=== PATIENT | female | born 1995 | race Caucasian/White ===

== ENCOUNTER 2016-12-17 05:54 | Inpatient (IN) ==
[2016-12-17] MEDS ORDERED: ONDANSETRON 4 MG/2 ML VIAL IV PRN (06:10)
[2016-12-17] MEDS ORDERED: MEPERIDINE 50 MG/1 ML VIAL IV PRN (06:10)
[2016-12-17] MEDS ORDERED: ACETAMINOPHEN 325 MG TABLET PO PRN (06:10)
[2016-12-17] MEDS ORDERED: LACTATED RINGERS 1,000 ML IV SCH (06:30)
[2016-12-17 06:32] LABS: Basophils # 0.1 10*3/uL (0.0-0.2); Basophils % 0.5 % (0.0-0.8); Eosinophils # 0.1 10*3/uL (0.0-0.87); Eosinophils % 1.2 % (0.00-10.9); Hematocrit 36.9 VOL% (35.7-47.0); Hemoglobin 12.9 GM/DL (12.0-16.0); Immature Granulocytes % 0.4 %; Immature Granulocytes Absolute 0.04 #; Lymphocytes # 2.6 10*3/uL (1.4-4.0); Lymphocytes % 27.7 % (21.3-54.2); Mean Corpuscular Hemoglobin 30 PG (27-34); Monocytes # 0.8 10*3/uL (0.11-0.8); Monocytes % 8.3 % (1.7-12.7); Neutrophils # 5.8 10*3/uL (1.4-7.4); Neutrophils % 61.9 % (38.7-73.9); Platelet Count 178 T/CUMM (130-400); Red Blood Count 4.24 MC/CUMM (3.8-5.5); Red Cell Distribution Width 13.8 % (9.3-17.3); White Blood Count 9.4 T/CUMM (4-12)
[2016-12-17] MEDS ORDERED: OXYTOCIN/LR 20 UNIT/1,000 ML BAG IV SCH (07:00)
[2016-12-17 07:05] LABS: Albumin 2.7 G/DL (3.4-5.0); Bilirubin,Total 0.5 MG/DL (0.2-1.0); Calcium 8.8 MG/DL (8.5-10.1); Osmolality,Calculated 273.5 MOS/KG (273-304); Total Protein 6.3 G/DL (6.4-8.3)
[2016-12-17 07:37] LABS: Hepatitis B Surface Ag Quant 0.14 Index; Hepatitis B Surface Ag Result Negative (Negative)
--- NOTE | 2016-12-17 09:03 | History and Physical Update ---
History and Physical Update - History and Physical H&P was reviewed, the patient examined and there: are no changes in the patients condition since last H&P was completed. - Dictation Physical: refer to scanned H&P - Physical Exam Mental Status: alert and oriented Heart: regular rate and rhythm Lung: clear to auscultation Abdomen: within normal limits Vitals: within normal limits History and Physical Changes: 39 weeks for induction. Pt with bilateral hearing loss. Pt with + CF screen. declined screening for CF.
[2016-12-17] MEDS ORDERED: miSOPROStol 200 MCG TABLET ONE ×2 (11:05→11:06)
[2016-12-17] MEDS ORDERED: ePHEDrine 50 MG/ML AMP ONE (11:06)
[2016-12-17] MEDS ORDERED: RHO(D) IMMUNE GLOBULIN 300 MCG SYRINGE IM ONE (13:40)
[2016-12-17] MEDS ORDERED: oxyCODONE/ACETAMINOPHEN 5-325 MG TABLET PO PRN ×2 (13:40)
[2016-12-17] MEDS ORDERED: HYDROCORTISONE 2.5% RECTAL CREAM 30 GM TUBE TOP PRN (13:40)
[2016-12-17] MEDS ORDERED: LANOLIN 50% CREAM 0.3 OZ TUBE TOP PRN (13:40)
[2016-12-17] MEDS ORDERED: BISACODYL 10 MG SUPP RECTAL PRN (13:40)
[2016-12-17] MEDS ORDERED: IBUPROFEN 800 MG TABLET PO PRN (13:40)
[2016-12-17] MEDS ORDERED: BENZOCAINE 20%/MENTHOL 0.5% SPRAY 56 GM CAN TOP PRN (13:40)
[2016-12-17] MEDS ORDERED: DIPH/TET/ACEL PERT BOOSTER VACCINE 0.5 ML VIAL IM ONE (13:40)
[2016-12-17] MEDS ORDERED: MEASLES/MUMPS/RUBELLA VACCINE 0.5 ML VIAL SUBCUT ONE (13:40)
[2016-12-17] MEDS ORDERED: WITCH HAZEL PADS 100/JAR TOP PRN (13:40)
[2016-12-17] MEDS ORDERED: OXYTOCIN/LR 20 UNIT/1,000 ML BAG IV ONE (13:40)
[2016-12-17] MEDS: DOCUSATE SODIUM 100 MG CAPSULE PO SCH (21:30)
[2016-12-18 06:39] LABS: Basophils % 0.3 % (0.0-0.8); Eosinophils # 0.1 10*3/uL (0.0-0.87); Eosinophils % 0.6 % (0.00-10.9); Hematocrit 34.1 VOL% (35.7-47.0); Hemoglobin 11.9 GM/DL (12.0-16.0); Immature Granulocytes % 0.5 %; Immature Granulocytes Absolute 0.06 #; Lymphocytes # 2.4 10*3/uL (1.4-4.0); Mean Corpuscular HGB Conc 34.9 GM/DL (32-36); Mean Corpuscular Hemoglobin 31 PG (27-34); Mean Corpuscular Volume 88.1 FL (87-102); Monocytes # 0.8 10*3/uL (0.11-0.8); Monocytes % 6.6 % (1.7-12.7); Neutrophils # 9.1 10*3/uL (1.4-7.4); Platelet Count 149 T/CUMM (130-400); Red Blood Count 3.87 MC/CUMM (3.8-5.5); Red Cell Distribution Width 13.8 % (9.3-17.3); White Blood Count 12.5 T/CUMM (4-12)
--- NOTE | 2016-12-18 09:16 | OB/GYN Progress Note ---
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 - Constitutional Vitals: Vital Signs Temp Pulse Resp BP Pulse Ox 12/18/16 07:28 97.1 F L 75 18 117/77 98 12/18/16 04:00 96.5 F L 91 H 18 121/76 96 12/17/16 23:47 98.2 F 101 H 18 127/68 99 12/17/16 20:00 98.2 F 84 18 140/74 99 12/17/16 17:30 99.0 F 100 H 20 135/80 98 12/17/16 16:30 99.0 F 97 H 20 136/78 98 12/17/16 15:30 99.0 F 87 20 132/84 98 12/17/16 15:00 98.5 F 74 18 121/74 99 12/17/16 14:30 98.5 F 75 18 132/78 99 General appearance: normal weight, no acute distress - Head Head exam: Present: normal inspection, normocephalic - Eye Eye exam: Present: EOMI - Respiratory Respiratory exam: Present: clear to auscultation bilaterally - Cardiovascular Cardiovascular exam: Present: regular rate and rhythm - GI/Abdominal GI/Abdominal exam: Present: soft (fundus firm, nontender) - Extremities Exam Extremities exam: Present: normal inspection - Neurological Exam Neurological exam: Present: alert, oriented X3 - Psychiatric Psychiatric exam: Present: normal affect, normal mood - Skin Skin exam: Present: normal color, warm Results - Labs CBC & BMP: 12/18/16 06:20 12/17/16 06:24 Lab Results: I have reviewed the past 24 hour labs
[2016-12-18] MEDS: DOCUSATE SODIUM 100 MG CAPSULE PO SCH (09:19)
[2016-12-18] MEDS: MULTIVITAMIN (PRENATAL) TABLET PO SCH (09:20)
[2016-12-19 08:52] VITALS: BP 120/68
--- NOTE | 2016-12-19 08:57 | Discharge Summary ---
Hospital Course - Hospital Course Hospital Course: Pt admitted for induction. She delivered without complication. Her course was unremarkable except that she did very well. Diagnosis - Discharge Diagnosis (1) Perineal laceration with delivery, second degree, delivered Status: Acute Discharge Plan - Discharge Data Disposition: Disch To Home/Self Care Condition at Discharge: Stable Discharge Diet: regular diet Activity: other (pelvic rest x 6 wks) Hygiene: may shower Weight Bearing at Discharge: full weight bearing Driving: not for (1 week) Contact your physician if you experience:: fever over 101, Difficulty voiding, Redness or swelling, Nausea/Vomiting, Shortness of breath, Bleeding, pain uncontrolled by pain medications - Discharge Medications New Ibuprofen Tab [Motrin Tab] 800 mg PO Q6H PRN #30 tablet PRN Reason: Pain Moderate (4-7) oxyCODONE/ACETAMINOPHEN 5-325 [Percocet 5-325] 1 tablet PO Q6H PRN #20 tablet PRN Reason: Pain Severe (8-10) - Follow Up or Referral Follow Up: Alejandrina Ulloa DO [Physician] - - Forms/Instructions Exam - Constitutional Vitals: Period Temp Pulse Resp BP Sys/Joya Pulse Ox Last 24 Hr 96.9 F-98.2 F 78-87 18-20 120-132/55-76 97-99 General appearance: normal weight, no acute distress - Head Head exam: Present: normal inspection, normocephalic - Eye Eye exam: Present: EOMI - Respiratory Respiratory exam: Present: clear to auscultation bilaterally - Cardiovascular Cardiovascular exam: Present: regular rate and rhythm - GI/Abdominal GI/Abdominal exam: Present: soft (fundus firm, nontender) - Extremities Exam Extremities exam: Present: normal inspection - Neurological Exam Neurological exam: Present: alert, oriented X3 - Psychiatric Psychiatric exam: Present: normal affect, normal mood - Skin Skin exam: Present: normal color, warm Discharge Results Procedures and tests throughout hospitalization: Pending Orders 12/17/16 06:10 Urinalysis Routine DS: Provider Date of admission: 12/17/16 06:10 Primary care physician: . No PCP Attending physician on admission: Alejandrina Ulloa DO Consults: 12/17/16 06:10 Consult to Anesthesiology [CONS] Routine Consulting Provider: Reason for Anesthesiology: Epidural Consult Comment: Epidural for pain managment 12/17/16 13:40 Consult to Photocopying Equipment Repairer [CONS] Routine Consult Photocopying Equipment Repairer: Breast Feeding Discharging clinician: Alejandrina Ulloa DO Expected date of discharge: 12/19/16
[2016-12-19] MEDS: MULTIVITAMIN (PRENATAL) TABLET PO SCH (09:50)
[2016-12-19] MEDS: DOCUSATE SODIUM 100 MG CAPSULE PO SCH ×2 (09:50→21:33)
--- NOTE | 2016-12-19 13:17 | Pathology Report from [facility] ---
[facility] ACCESSION # : [id number] PATIENT NAME : Barbara Urrutia ORDERING DR : JANI SANCHEZ CLINICAL HX: IPU @ 39.1 wks, vaginal delivery POST-OP DX: Same SPECIMEN INFO: Intact placenta GROSS DESCRIPTION: Received fresh labeled BARBARA URRUTIA & PLACENTA is a 318 gm placenta measuring 16.6 x 11.5 x 2.8 cm. The membranes are pink griffin and slightly opaque. A portion of attached umbilical cord measures 8 cm and a segment of hypercoiled umbilical cord measuring 42 cm contains three vessels and is eccentrically inserted. The surface is dark [place] with scattered areas of subchorionic fibrin present measuring up to 1.5 cm. The maternal surface is hemorrhagic with mildly disrupted cotyledons and clotted blood and a few areas of fibrin noted. No gross abnormalities are noted upon sectioning. Sections submitted A- membranes and cord, B- and maternal surfaces. DIAGNOSIS FOR BARBARA URRUTIA: PLACENTA, MEMBRANES, UMBILICAL CORD: Focal placental infarction with dystrophic calcification, moderate intervillous blood, chorionic acute acute and chronic inflammation,. Tri-vessel umbilical cord, eccentrically inserted. Membranes with focal acute and chronic inflammation and attached blood. COLLECTED DATE: 12/18/2016 [facility] REPORT DATE: 12/19/2016 ELECTRONICALLY SIGNED BY: Shila Miller M.D. 12/19/2016 - 10:30:34 ANGELIKA
== END 2016-12-19 22:00 | disposition home or self-care (01) | DRG 560 ==
LOC: N.LDOUT 05:54 → N.LD 05:58 → N.OB 14:14
PROVIDERS: ADMIT Obstetrics & Gynecology; ATTEND Obstetrics & Gynecology